=== PATIENT | female | born 1980 | race Two or more races ===

== ENCOUNTER → 2016-07-09 | Day surgery (SDC) | payer SELFPAY ==
[~2016-07-09] VITALS: Ht 157.5 cm; Wt 42.1 kg
[~2016-07-09] MED LIST: PROTONIX40 MG PO
== END ==
LOC: GPOC 07-01 15:00 → GEND 06:40 → GPOC 07:00
PROC: 0DB98ZX Excision of Duodenum, Via Natural or Artificial Opening Endoscopic, Diagnostic (ICD-10-PCS; principal; 2016-07-09)
PROC: 0DJD8ZZ Inspection of Lower Intestinal Tract, Via Natural or Artificial Opening Endoscopic (ICD-10-PCS; 2016-07-09)
DX: K29.60 Other gastritis without bleeding (principal); K25.9 Gastric ulcer, unspecified as acute or chronic, without hemorrhage or perforation; Z80.0 Family history of malignant neoplasm of digestive organs; K64.8 Other hemorrhoids; K62.5 Hemorrhage of anus and rectum; D64.9 Anemia, unspecified
CPT/HCPCS: J2001; J7030